=== PATIENT | female | born 1985 | race Caucasian/White ===

== ENCOUNTER → 2018-02-06 | Outpatient (REF) | payer OTHER ==
[2018-02-06 14:24] LABS: BASO % 0.5 % (0.0-1.0); EOS # 0.1 10^3/uL (0.0-0.50); HEMATOCRIT 41.4 % (36.0-47.0); HEMOGLOBIN 14.3 g/dl (12.0-15.5); IMMATURE GRANULOCYTE % 0.3 % (0-3.0); LYMPH # 1.4 10^3/uL (1.5-4.5); LYMPH % 23.1 % (24.0-44.0); MEAN CORPUSCULAR HEMOGLOBIN 30.8 pg (27.0-33.0); MEAN CORPUSCULAR HGB CONC 34.5 g/dl (32.0-36.5); MONO # 0.3 10^3/uL (0.0-0.8); MONO % 4.8 % (0.0-5.0); NEUTROPHILS # 4.2 10^3/uL (1.8-7.7); NEUTROPHILS % 69.3 % (36.0-66.0); PLATELET COUNT, AUTOMATED 192 10^3/uL (150-450); RED BLOOD COUNT 4.65 10^6/uL (4.00-5.40); RED CELL DISTRIBUTION WIDTH 11.9 % (11.5-14.5); WHITE BLOOD COUNT 6.1 10^3/uL (4.0-10.0)
[2018-02-06 15:00] LABS: ALBUMIN 4.1 GM/DL (3.2-5.2); ALBUMIN/GLOBULIN RATIO 1.24 (1.00-1.93); ALKALINE PHOSPHATASE 63 U/L (45-117); ALT/SGPT 21 U/L (12-78); ANION GAP 10 MEQ/L (8-16); AST/SGOT 14 U/L (7-37); BILIRUBIN,TOTAL 0.9 MG/DL (0.2-1.0); BLOOD UREA NITROGEN 10 MG/DL (7-18); CALCIUM LEVEL 9.1 MG/DL (8.5-10.1); CARBON DIOXIDE LEVEL 26 MEQ/L (21-32); CHLORIDE LEVEL 106 MEQ/L (98-107); CHOLESTEROL LEVEL 181 MG/DL (<200); CHOLESTEROL RISK RATIO 2.828 (<5); CREATININE FOR GFR 0.78 MG/DL (0.55-1.30); GLOMERULAR FILTRATION RATE > 60.0 (>60); GLUCOSE, FASTING 95 MG/DL (70-100); HDL CHOLESTEROL 64 MG/DL (>40); LDL CHOLESTEROL 104 MG/DL (<100); NON-HDL-C 117 MG/DL; POTASSIUM SERUM 4.2 MEQ/L (3.5-5.1); SODIUM LEVEL 142 MEQ/L (136-145); TOTAL PROTEIN 7.4 GM/DL (6.4-8.2); TRIGLYCERIDES LEVEL 66 MG/DL (<150)
[2018-02-06 15:09] LABS: ESTIMATED AVERAGE GLUCOSE 94 MG/DL (60-110); HEMOGLOBIN A1c 4.9 %
== END ==
LOC: M LAB REF 13:16
DX: Z00.00 Encounter for general adult medical examination without abnormal findings (principal)

== ENCOUNTER → 2018-09-21 | Outpatient (REF) | payer OTHER | LOC: M SFHCLERA 10:51 | PROVIDERS: ATTEND Physician Assistant | DX: J02.9 Acute pharyngitis, unspecified (principal) ==

== ENCOUNTER 2018-11-19 20:11 | Emergency (ER) | payer OTHER ==
[~2018-11-19] VITALS: Ht 157.5 cm; Wt 84.1 kg
[2018-11-19] MEDS ORDERED: MULTCAP PO (20:31)
[2018-11-19] MEDS ORDERED: RA S PO (20:31)
[2018-11-19] MEDS ORDERED: NORCO, ANEXSIA 5/325MG TABLET (HYDROcodone/ACETAMINOPHEN) PO ONE (20:45)
[2018-11-19] MEDS ORDERED: NORCO 5/325MG TABLET (BULK FOR ED) PO ONE (21:15)
[2018-11-19 21:16] VITALS: BP 118/76
--- NOTE | 2018-11-20 07:23 | REP ---
Clinical: Trauma. Technique: AP, lateral, bilateral oblique views of the right ankle. Findings: Soft tissue swelling noted. No acute fracture or dislocation. Joint spaces and ankle mortise are intact. Impression: Soft-tissue swelling. No acute fracture or dislocation. Electronically Signed by Garland Munoz MD 11/20/2018 07:14 A
== END 2018-11-19 21:24 | disposition home or self-care (01) ==
LOC: M ED 20:11
DX: S93.401A Sprain of unspecified ligament of right ankle, initial encounter (principal); X50.9XXA Other and unspecified overexertion or strenuous movements or postures, initial encounter; Y92.830 Public park as the place of occurrence of the external cause; Y93.66 Activity, soccer

== ENCOUNTER → 2019-05-28 | Outpatient (REF) | payer OTHER ==
[~2019-05-28] MED LIST: MULTCAP PO; RA S PO
== END ==
LOC: M SFHCLERA 12:09
PROVIDERS: ATTEND Nurse Practitioner Family
DX: J02.9 Acute pharyngitis, unspecified (principal)

== ENCOUNTER → 2021-03-12 | Outpatient (CLI) | payer BC, OTHER ==
--- NOTE | 2021-03-13 04:01 | REP ---
INDICATION: ? THYROMEGALY RT LOBE COMPARISON: None. TECHNIQUE: Ordoñez scale and color evaluation of the thyroid gland using the linear high frequency transducer. FINDINGS: The thyroid gland is heterogeneous and mildly enlarged. Color images demonstrate normal symmetric vascularity to the bilateral lobes. No nodule/mass or cystic abnormalities are appreciated. Right thyroid lobe measures 5.3 x 2.4 x 1.8 cm. Isthmus measures 5.7 mm in width. Left thyroid lobe measures 5.5 x 1.9 x 2.0 cm. IMPRESSION: Mildly enlarged heterogeneous thyroid gland without discrete abnormality. <Electronically signed by Garland Munoz > 03/13/21 [id number]
== END ==
LOC: M RAD 10:45
PROVIDERS: ATTEND Registered Nurse
DX: E01.0 Iodine-deficiency related diffuse (endemic) goiter (principal)

== ENCOUNTER → 2023-03-04 | Outpatient (REF) | payer BC | LOC: M LAB REF 16:12 | PROVIDERS: ATTEND Internal Medicine | DX: G24.5 Blepharospasm (principal); Z83.2 Family history of diseases of the blood and blood-forming organs and certain disorders involving the immune mechanism ==

== ENCOUNTER → 2023-09-07 | Outpatient (CLI) | payer BC | LOC: M RAD 11:22 | PROVIDERS: ATTEND Physician Assistant Medical | DX: M79.622 Pain in left upper arm (principal) ==

== ENCOUNTER → 2024-08-06 | Outpatient (REF) | payer BC | LOC: M LAB REF 12:21 | PROVIDERS: ATTEND Physician Assistant Medical | DX: Z00.00 Encounter for general adult medical examination without abnormal findings (principal); R21 Rash and other nonspecific skin eruption ==